=== PATIENT | male | born 1975 | race Caucasian/White ===

== ENCOUNTER → 2017-05-25 | Outpatient (CLI) | payer BC ==
[~2017-05-25] MED LIST: ABILIFY20 MG PO; ACULAR 3 ML3 ML OS; ADVIL200 MG; ALLEGRA30 MG; DESYREL 100MG100 MG; DESYREL 100MG100 MG PO; DOXYCYCLINE 10100 MG PO; FLEXERIL 1010 MG/TAB PO; GENTAMICIN OPTHA3 GM OD; KLONOPIN 1MG1 MG; KLONOPIN 1MG1 MG PO; LAMICTAL XR200 MG; LAMICTAL200 MG PO; LEXAPRO20 MG; LEXAPRO20 MG PO; LUNESTA3 MG; MELATONIN1 MG PO; NORCO 325 MG-51 TAB PO; PERCOCET 325 MG1 TA2 PO; PREDFORTE5ML OU; PROAIR HFA0.09 MG/AC IH; SEROQUEL 200MG200 MG PO; VIGAMOX 0.5% 3 M3 ML OP; VOLTAREN 75 DR75 MG PO
== END ==
LOC: BHSO 09:26
DX: F31.32 Bipolar disorder, current episode depressed, moderate (principal)

== ENCOUNTER → 2017-06-12 | Outpatient (CLI) | payer BC | LOC: BHSO 09:41 | DX: F31.73 Bipolar disorder, in partial remission, most recent episode manic (principal) ==

== ENCOUNTER 2017-07-19 23:31 | Inpatient (IN) | payer BC ==
[~2017-07-19] VITALS: Ht 172.7 cm; Wt 64.5 kg
[~2017-07-19 23:31] MED LIST changes: -ABILIFY20 MG PO; -DOXYCYCLINE 10100 MG PO; -FLEXERIL 1010 MG/TAB PO; -VOLTAREN 75 DR75 MG PO
[2017-07-20 01:20] LABS: BASO # 0.1 (0.0-0.2); BASO % 0.4 % (0.0-2.0); EOS # 0.1 (0.0-0.7); EOS % 0.5 % (0-4.0); GRAN # 12.3 (1.4-6.5); GRAN % 79.1 % (42.2-75.2); HEMATOCRIT 40.6 % (42.0-52.0); HEMOGLOBIN 13.9 g/dl (13.5-18.0); LYMPH # 1.8 (1.2-3.4); LYMPH % 11.3 % (20.0-51.0); MEAN CELL VOLUME 90 fl (80.0-100.0); MEAN CORPUSCULAR HEMOGLOBIN 31 pg (27.0-31.0); MEAN CORPUSCULAR HGB CONC 34 g/dl (33.0-37.0); MEAN PLATELET VOLUME 8.2 fl (7.4-10.4); MONO # 1.3 (0.1-0.6); MONO % 8.4 % (1.7-9.3); PLATELET COUNT 369 K/mm3 (130-400); RED BLOOD COUNT 4.51 M/mm3 (4.20-5.60); REDCELL DISTRIBUTION WIDTH-CV 11.9 % (11.5-14.5); WHITE BLOOD COUNT 15.5 K/mm3 (4.8-10.8)
[2017-07-20 01:29] LABS: ADJUSTED CALCIUM 9.1 mg/dL (8.4-10.2); ALBUMIN 4.5 gm/dL (3.5-5.0); BILIRUBIN,TOTAL 0.6 mg/dL (0.0-1.0); CALCIUM 9.5 mg/dL (8.4-10.2); CREATININE, serum 0.79 mg/dL (0.66-1.25); POTASSIUM 4.3 mmol/L (3.4-5.0); TOTAL PROTEIN 7.7 gm/dL (6.4-8.2)
[2017-07-20] MEDS ORDERED: VOLTAREN 75 DR75 MG PO (04:57)
[2017-07-20] MEDS ORDERED: FLEXERIL 1010 MG/TAB PO (04:57)
[2017-07-20 07:29] VITALS: BP 115/73; PULSE 42; TEMP 97.8
[2017-07-20] MEDS ORDERED: ABILIFY20 MG PO (11:23)
[2017-07-20] MEDS ORDERED: LAMICTAL200 MG PO (12:45)
[2017-07-20 14:14] VITALS: BP 122/78; PULSE 59; TEMP 97.9
[2017-07-20 19:00] VITALS: BP 111/83; PULSE 58; TEMP 96.8
[2017-07-20 22:23] VITALS: BP 109/63; PULSE 41; TEMP 98.6
[2017-07-21 03:18] VITALS: BP 117/71; PULSE 47; TEMP 97.9
[2017-07-21 06:00] VITALS: BP 104/71; PULSE 40; TEMP 97.8
[2017-07-21 10:08] VITALS: BP 124/61; PULSE 44; TEMP 98.2
[2017-07-21] MEDS ORDERED: PERCOCET 325 MG1 TA2 PO (10:21)
== END 2017-07-21 13:40 | disposition home or self-care (01) | DRG 200 ==
LOC: COL.ER 23:31 → SURG 07-20 06:26
PROVIDERS: Emergency Medicine
DX: S27.0XXA Traumatic pneumothorax, initial encounter (principal); S22.32XA Fracture of one rib, left side, initial encounter for closed fracture; Y04.8XXA Assault by other bodily force, initial encounter; F17.210 Nicotine dependence, cigarettes, uncomplicated
CPT/HCPCS: J1885; J2765; J3010; J7030; Q9967

== ENCOUNTER 2017-08-04 16:28 | Emergency (ER) | payer BC ==
[~2017-08-04] VITALS: Ht 172.7 cm; Wt 68.2 kg
[~2017-08-04 16:28] MED LIST changes: +ABILIFY20 MG PO; +FLEXERIL 1010 MG/TAB PO; +VOLTAREN 75 DR75 MG PO
[2017-08-04 16:46] VITALS: BP 130/83; TEMP 98.1
[2017-08-04] MEDS ORDERED: DOXYCYCLINE 10100 MG PO (18:01)
[2017-08-04] MEDS ORDERED: PERCOCET 325 MG1 TA2 PO (18:01)
[2017-08-04 18:42] VITALS: PULSE 80
== END 2017-08-04 18:42 | disposition home or self-care (01) ==
LOC: COL.ER 16:28
DX: S80.11XA Contusion of right lower leg, initial encounter (principal); L25.9 Unspecified contact dermatitis, unspecified cause; J45.909 Unspecified asthma, uncomplicated; F41.9 Anxiety disorder, unspecified; F17.210 Nicotine dependence, cigarettes, uncomplicated; W22.09XA Striking against other stationary object, initial encounter
CPT/HCPCS: J1100

== ENCOUNTER → 2017-08-14 | Outpatient (CLI) | payer BC ==
[~2017-08-14] MED LIST changes: +DOXYCYCLINE 10100 MG PO
== END ==
LOC: BHSO 11:11
DX: F31.73 Bipolar disorder, in partial remission, most recent episode manic (principal)